=== PATIENT | male | born 1965 | race Caucasian/White ===

== ENCOUNTER 2016-10-24 12:12 | Outpatient (CLI) ==
[2015-02-04 12:04] VITALS: BMI 32.5
--- NOTE | 2016-10-24 12:38 | DI ---
EXAM: Right knee, two-view HISTORY: Right knee pain COMPARISON: None FINDINGS: No fracture or dislocation. Small medial and retropatellar osteophytes. Medial, lateral , patellofemoral compartment normal in height. Possible small joint effusion. IMPERSSION: 1. Mild osteoarthritis. 2. Possible small joint effusion
== END 2016-10-24 12:13 | disposition home or self-care (01) ==
LOC: RAD 12:12
PROVIDERS: ATTEND Internal Medicine
DX: M25.561 Pain in right knee (principal)